=== PATIENT | male | born 1995 | race Two or more races ===

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

== ENCOUNTER 2017-01-03 13:50 | Emergency (ER) | payer OTHER ==
[2017-01-03 13:55] VITALS: BP 115/64; PULSE 92; RESP 18; TEMP 100.8; O2SAT 93
[2017-01-03] MEDS ORDERED: IBUPROFEN 600 MG TAB PO ONE ×2 (13:58→14:00)
--- NOTE | 2017-01-03 14:32 | EDPHY ---
H & P Time Seen by Provider: 01/03/17 14:21 HPI/ROS: CHIEF COMPLAINT: Fever, cough HISTORY OF PRESENT ILLNESS: 21-year-old male presents with fever and cough. Onset of runny nose, sore throat and cough 3 days ago. The cough is dry and frequent. No associated shortness of breath. Onset of fever today. Tolerating oral fluids well. No vomiting or diarrhea. He did not receive a flu vaccination this year. REVIEW OF SYSTEMS: Eyes: No visual changes Respiratory: no shortness of breath Cardiac: No chest pain Gastrointestinal: No nausea, no vomiting, no abdominal pain Genitourinary: no dysuria Musculoskeletal: No myalgias Skin: No rash Neurological: No headache, no weakness Psychiatric: No depression Past Medical/Surgical History: Denies Social History: Student at [employer] Smoking Status: Never smoked Physical Exam: General Appearance: Alert, pleasant Eyes: Pupils equal and round, no conjunctival injection ENT, Mouth: Mucous membranes moist, pharyngeal erythema Neck: Normal inspection, shotty anterior adenopathy Respiratory: Lungs are clear to auscultation Cardiovascular: Regular rate and rhythm Neurological: A&O, nonfocal, normal gait Skin: Warm and dry, no rash Extremities: normal inspection Psychiatric: Mood and affect normal Constitutional: Initial Vital Signs Temperature (C) 38.2 C 01/03/17 13:52 Heart Rate 92 01/03/17 13:52 Respiratory Rate 18 01/03/17 13:52 Blood Pressure 115/64 01/03/17 13:52 O2 Sat (%) 93 01/03/17 13:52 O2 Delivery Mode Room Air Allergies/Adverse Reactions: No Known Allergies Allergy (Verified 01/03/17 13:52) Home Medications: Medication Instructions Recorded NK [No Known Home Meds] 08/18/16 Medical Decision Making ED Course/Re-evaluation: This patient presents with a viral upper respiratory infection. No evidence of pneumonia. Symptomatic care discussed. Differential Diagnosis: Differential diagnosis includes but is not limited to pneumonia, otitis media, peritonsillar abscess, retropharyngeal abscess, meningitis. - Data Points Laboratory Results: 01/03/17 01/03/17 Unknown 13:56 Group A Strep Screen NEGATIVE (NEGATIVE) Group A Strep DNA Pending Medications Given: Discontinued Medications Ibuprofen (Motrin) 600 mg PO EDNOW ONE Stop: 01/03/17 14:01 Last Admin: 01/03/17 14:00 Dose: 600 mg Departure - Departure Disposition: Home, Routine, Self-Care Clinical Impression: Upper respiratory infection Qualifiers: URI type: unspecified viral URI Qualified Code(s): J06.9 - Acute upper respiratory infection, unspecified Condition: Good Instructions: Upper Respiratory Infection (ED) Additional Instructions: Ibuprofen 600 mg 3-4 times daily while the fever persists. Alternate with Tylenol every 3 hours. Drink plenty of fluids. Return for worsening symptoms or any concerns. Referrals: [facility],. [Clinic] - 3-4 days, if not improved
== END 2017-01-03 14:38 | disposition home or self-care (01) ==
DX: J06.9 Acute upper respiratory infection, unspecified (principal)

== ENCOUNTER 2017-05-03 17:14 | Emergency (ER) | payer OTHER ==
[2017-05-03 17:20] VITALS: RESP 16; TEMP 98.1
--- NOTE | 2017-05-03 18:16 | EDPHY ---
H & P Stated Complaint: Stomach ache (LUQ) this morning,better now;needs note for school Time Seen by Provider: 05/03/17 18:10 HPI/ROS: CHIEF COMPLAINT: Abdominal pain now resolved HISTORY OF PRESENT ILLNESS: The patient is a 21-year-old man who comes to the emergency department requesting a note for school. He states that he missed the lab the today because he had epigastric abdominal pain. It is now resolved. He did not vomit. No diarrhea. No fever. He is requesting a note for school. He declines workup. REVIEW OF SYSTEMS: Constitutional: denies: chills, fever, recent illness, recent injury EENTM: denies: blurred vision, double vision, nose congestion Respiratory: denies: cough, shortness of breath Cardiac: denies: chest pain, irregular heart rate, lightheadedness, palpitations Gastrointestinal/Abdominal: denies: See HPI diarrhea, vomiting, blood streaked stools Genitourinary: denies: dysuria, frequency, hematuria, pain Musculoskeletal: denies: joint pain, muscle pain Skin: denies: lesions, rash, jaundice, bruising Neurological: denies: headache, numbness, paresthesia, tingling, dizziness, weakness Hematologic/Lymphatic: denies: blood clots, easy bleeding, easy bruising Immunologic/allergic: denies: HIV/AIDS, transplant EXAM: GENERAL: Well-appearing, well-nourished and in no acute distress. HEAD: Atraumatic, normocephalic. EYES: Pupils equal round and reactive to light, extraocular movements intact, sclera anicteric, conjunctiva are normal. ENT: TMs normal, nares patent, oropharynx clear without exudates. Moist mucous membranes. NECK: Normal range of motion, supple without lymphadenopathy or JVD. LUNGS: Breath sounds clear to auscultation bilaterally and equal. No wheezes rales or rhonchi. HEART: Regular rate and rhythm without murmurs, rubs or gallops. ABDOMEN: Soft, nontender, normoactive bowel sounds. No guarding, no rebound. No masses appreciated. BACK: No CVA tenderness, no spinal tenderness, step-offs or deformities EXTREMITIES: Normal range of motion, no pitting or edema. No clubbing or cyanosis. NEUROLOGICAL: Cranial nerves II through XII grossly intact. Normal speech, normal gait. 5/5 strength, normal movement in all extremities, normal sensation PSYCH: Normal mood, normal affect. SKIN: Warm, dry, normal turgor, no visible rashes or lesions. Source: Patient Exam Limitations: No limitations - Personal History Current Tetanus Diphtheria and Acellular Pertussis (TDAP): Unsure - Medical/Surgical History Hx Asthma: No Hx Chronic Respiratory Disease: No Hx Diabetes: No Hx Cardiac Disease: No Hx Renal Disease: No Hx Cirrhosis: No Hx Alcoholism: No Hx HIV/AIDS: No Hx Splenectomy or Spleen Trauma: No Other PMH: PSHx: none. PMHx: denies - Family History Significant Family History: No pertinent family hx - Social History Smoking Status: Never smoked Alcohol Use: Sober Drug Use: None Constitutional: Initial Vital Signs Temperature (C) 36.7 C 05/03/17 17:17 Heart Rate 68 05/03/17 17:17 Respiratory Rate 16 05/03/17 17:17 Blood Pressure 119/77 05/03/17 17:17 O2 Sat (%) 97 05/03/17 17:17 O2 Delivery Mode Room Air Allergies/Adverse Reactions: No Known Allergies Allergy (Verified 05/03/17 17:16) Home Medications: Medication Instructions Recorded NK [No Known Home Meds] 08/18/16 Medical Decision Making ED Course/Re-evaluation: The patient does not wish to have any testing done. He simply wants a note for school. He declines further workup or testing. His abdominal exam is nontender. Will discharge him at this time. Differential Diagnosis: Partial list of the Differential diagnosis considered include but were not limited to; gastritis, peptic ulcer disease and although unlikely based on the history and physical exam, I also considered appendicitis, biliary disease, kidney stone, urinary tract infection. I discussed these differential diagnoses and the plan with the patient as well as the usual and expected course. The patient understands that the diagnosis is provisional and that in medicine we are not always correct and that further workup is often warranted. Usual and customary warnings were given. All of the patient's questions were answered. The patient was instructed to return to the emergency department should the symptoms at all worsen or return, otherwise to followup with the physician as we discussed. Departure - Departure Disposition: Home, Routine, Self-Care Clinical Impression: Abdominal pain Qualifiers: Abdominal location: left upper quadrant Qualified Code(s): R10.12 - Left upper quadrant pain Condition: Fair Instructions: Acute Abdominal Pain (ED) Referrals: NONE *PRIMARY CARE P,. [Primary Care Provider] - As per Instructions Stand Alone Forms: School Excuse
[2017-05-03 18:28] VITALS: BP 123/75; PULSE 84; O2SAT 96
== END 2017-05-03 18:41 | disposition home or self-care (01) ==
DX: R10.12 Left upper quadrant pain (principal)

== ENCOUNTER 2017-06-21 20:47 | Emergency (ER) | payer OTHER ==
[2017-06-21 21:22] VITALS: BP 124/76
--- NOTE | 2017-06-21 22:10 | EDPHY ---
H & P Stated Complaint: c/o abd pain since last pm, no n/v/d Time Seen by Provider: 06/21/17 22:10 HPI/ROS: HPI CHIEF COMPLAINT: Need School Note. HISTORY OF PRESENT ILLNESS: Patient is 21-year-old male, [employer] student, presents emergency room stating that he needs a school note. Patient states his stomach was upset earlier today it is now resolved he denies any abdominal pain. He states he missed his entire day of classes and like a school note. He explains to me that he does not have any abdominal pain he does not want any medical workup for the abdominal pain that he had earlier today. He complained of a dull ache around his periumbilical region. I did discuss with the patient that this could be an early appendicitis or a pain-free window for appendicitis. I did recommend he has workup here in the emergency room however he has declined. He wants school known wants to be discharged. I did explain to him if he has worsening abdominal pain today or overnight fever vomiting or does not feel well he needs to return emergency room for further evaluation Past Medical History: Denies Past Surgical History: Denies Social History: [employer] student. Family History: Denies ROS REVIEW OF SYSTEMS: A comprehensive 10 point review of systems is otherwise negative aside from elements mentioned in the history of present illness. Exam Constitutional triage nursing summary reviewed, vital signs reviewed, awake/ alert. Eyes normal conjunctivae and sclera, EOMI, PERRLA. HENT normal inspection, atraumatic, moist mucus membranes, no epistaxis, neck supple/ no meningismus, no raccoon eyes. Respiratory clear to auscultation bilaterally, normal breath sounds, no respiratory distress, no wheezing. Cardiovascular rate normal, regular rhythm, no murmur, no edema, distal pulses normal. Gastrointestinal no tenderness on exam. soft, non-tender, no rebound, no guarding, normal bowel sounds, no distension, no pulsatile mass. Genitourinary no CVA tenderness. Musculoskeletal no midline vertebral tenderness, full range of motion, no calf swelling, no tenderness of extremities, no meningismus, good pulses, neurovascularly intact. Skin pink, warm, & dry, no rash, skin atraumatic. Neurologic awake, alert and oriented x 3, AAOx3, moves all 4 extremities equally, motor intact, sensory intact, CN II-XII intact, normal cerebellar, normal vision, normal speech. Psychiatric normal mood/affect. Heme/Lymph/Immune no lymphadenopathy. Differential diagnosis includes but is not limited to and in no particular order : Early appendicitis, acute appendicitis, Bowel obstruction, appendicitis, gallbladder disease, diverticulitis, colitis, enteritis, perforated viscus, gastritis, GERD, esophagitis, urinary tract infection, pyelonephritis, kidney stones Medical Decision Making: Patient declining any further medical evaluation or workup here in emergency room. Return precautions discussed with him. Will give him a school note. He understands return emergency room if develops worsening abdominal pain fever vomiting. Source: Patient - Medical/Surgical History Hx Asthma: No Hx Chronic Respiratory Disease: No Hx Diabetes: No Hx Cardiac Disease: No Hx Renal Disease: No Hx Cirrhosis: No Hx Alcoholism: No Hx HIV/AIDS: No Hx Splenectomy or Spleen Trauma: No Other PMH: PSHx: none. PMHx: denies - Social History Smoking Status: Never smoked Constitutional: Initial Vital Signs Temperature (C) 36.8 C 06/21/17 21:20 Heart Rate 76 06/21/17 21:20 Respiratory Rate 16 06/21/17 21:20 Blood Pressure 124/76 H 06/21/17 21:20 O2 Sat (%) 96 06/21/17 21:20 O2 Delivery Mode Room Air Allergies/Adverse Reactions: No Known Allergies Allergy (Verified 06/21/17 21:22) Home Medications: Medication Instructions Recorded NK [No Known Home Meds] 08/18/16 Departure - Departure Disposition: Home, Routine, Self-Care Clinical Impression: Abdominal pain Qualifiers: Abdominal location: generalized Qualified Code(s): R10.84 - Generalized abdominal pain Condition: Good Instructions: Acute Abdominal Pain (ED) Additional Instructions: 1. Return emergency room immediately if he develops worsening abdominal pain fever vomiting or not feeling well. Referrals: NONE *PRIMARY CARE P,. [Primary Care Provider] - As per Instructions Stand Alone Forms: School Excuse
== END 2017-06-21 22:26 | disposition home or self-care (01) ==
DX: R10.84 Generalized abdominal pain (principal)

== ENCOUNTER 2017-08-23 16:15 | Emergency (ER) | payer OTHER ==
[2017-08-23] MEDS ORDERED: NS 1,000 ML IV ONE (16:50)
[2017-08-23] MEDS ORDERED: MAG HYDROX/AL HYDROX/SIMETH 30 ML UDCUP PO ONE (16:50)
[2017-08-23] MEDS ORDERED: PANTOPRAZOLE SODIUM 40 MG VIAL IVP ONE (16:50)
[2017-08-23] MEDS ORDERED: HYOSCYAMINE SULFATE 0.125 MG TAB PO ONE (16:50)
[2017-08-23] MEDS ORDERED: LIDOCAINE 2% VISCOUS 15 ML UDCUP PO ONE (16:50)
--- NOTE | 2017-08-23 16:50 | EDPHY ---
General - History Smoking Status: Never smoked Time Seen by Provider: 08/23/17 16:40 Narrative: CHIEF COMPLAINT: "Abdominal discomfort" HISTORY OF PRESENT ILLNESS: Patient presents with complaints of epigastric "abdominal discomfort." He states he drank a large amount of tea last night before going to bed. He woke at 2:00 a.m. With some discomfort in the epigastrium. It was mild to moderate. Some nausea but no vomiting. No fever chills. No diarrhea, constipation, bloody stools. He says that he was able to go to sleep eventually, and slept until 3:00 p.m.. He now states that he has no appetite but is discomfort is last. He is not nauseated but does not want to eat or drink anything. He is concerned that he is having an allergic reaction to the black tea that he drank no other associated complaints or modifying factors. No abdominal pathology or surgeries per REVIEW OF SYSTEMS: Ten systems reviewed and are negative unless otherwise noted in the HPI PCP: None SPECIALISTS: None PAST MEDICAL HISTORY: None PAST SURGICAL HISTORY: None SOCIAL HISTORY: Never smoker. No drug or alcohol use. Originally from [place]. [employer] FAMILY HISTORY: Noncontributory EXAMINATION General Appearance: Alert, no distress Head: normocephalic, atraumatic Eyes: Pupils equal and round, no conjunctival pallor or injection ENT, Mouth: Mucous membranes moist Neck: Normal inspection, supple, non-tender Respiratory: Lungs are clear to auscultation Cardiovascular: Regular rate and rhythm Gastrointestinal: Abdomen is soft and nontender. No tympany rigidity. No guarding. No palpable masses. No CVA tenderness. Benign abdominal examination Back: non-tender, no bony abnormalities Neurological: A&O, nonfocal, normal gait Skin: Warm and dry, no rash Extremities: Nontender, no pedal edema Psychiatric: Mood and affect normal DIFFERENTIAL DIAGNOSES: Including but not limited to gastritis, pancreatitis, peptic ulcer, cholecystitis, cholelithiasis, enteritis, gastroenteritis, colitis MDM: 4:50 p.m. Epigastric discomfort that is suspected peptic ulcer versus gastritis. His abdominal exam is benign. His vitals are within normal limits. I have ordered laboratory studies but I do not feel he warrants emergent imaging at this time. I have ordered IV fluid, Protonix and a GI cocktail. 6:00 p.m. Laboratory studies are unremarkable for any acute findings. Patient has received IV fluid, IV Protonix and a GI cocktail. I re-evaluated him at this time and he is feeling significantly better. He feels no discomfort. He has had water with no difficulty. We discussed discharge home with likely gastritis has a diagnosis. We discussed avoiding inflammatory agents. We discussed Pepcid and Carafate at home. We discussed ED precautions, primary care follow-up and possible GI referral. He is comfortable this plan and discharged home stable condition. SUPERVISION: This patient was independently evaluated without direct involvement of or examination by the attending physician. (Jose Ramon Donohue) - Objective Vital Signs: Initial Vital Signs Temperature (C) 97.9 F 08/23/17 16:21 Heart Rate 80 08/23/17 16:21 Respiratory Rate 17 08/23/17 16:21 Blood Pressure 110/75 08/23/17 16:21 O2 Sat (%) 95 08/23/17 16:21 O2 Delivery Mode Room Air Allergies/Adverse Reactions: No Known Allergies Allergy (Verified 08/23/17 16:21) Home Medications: Medication Instructions Recorded Famotidine [Pepcid 20 MG (*)] 20 mg PO BID #20 tab 08/23/17 Sucralfate [Carafate Oral Liquid 10 ml PO QID PRN #240 udsyr 08/23/17 100 mg/ml] Laboratory Results: Laboratory Results 08/23/17 17:15 08/23/17 17:15 08/23/17 08/23/17 17:15 17:15 WBC 4.16 10^3/uL 10^3/uL (3.80-9.50) RBC 6.39 10^6/uL H 10^6/uL (4.40-6.38) Hgb 16.5 g/dL g/dL (13.7-17.5) Hct 50.7 % % (40.0-51.0) MCV 79.3 fL L fL (81.5-99.8) MCH 25.8 pg L pg (27.9-34.1) MCHC 32.5 g/dL g/dL (32.4-36.7) RDW 14.8 % % (11.5-15.2) Plt Count 164 10^3/uL 10^3/uL (150-400) MPV 10.8 fL fL (8.7-11.7) Neut % (Auto) 43.5 % % (39.3-74.2) Lymph % (Auto) 45.9 % H % (15.0-45.0) [place] % (Auto) 7.5 % % (4.5-13.0) Eos % (Auto) 2.2 % % (0.6-7.6) Baso % (Auto) 0.7 % % (0.3-1.7) Nucleat RBC Rel Count 0.0 % % (0.0-0.2) Absolute Neuts (auto) 1.81 10^3/uL 10^3/uL (1.70-6.50) Absolute Lymphs (auto) 1.91 10^3/uL 10^3/uL (1.00-3.00) Absolute Monos (auto) 0.31 10^3/uL 10^3/uL (0.30-0.80) Absolute Eos (auto) 0.09 10^3/uL 10^3/uL (0.03-0.40) Absolute Basos (auto) 0.03 10^3/uL 10^3/uL (0.02-0.10) Absolute Nucleated RBC 0.00 10^3/uL 10^3/uL (0-0.01) Immature Gran % 0.2 % % (0.0-1.1) Immature Gran # 0.01 10^3/uL 10^3/uL (0.00-0.10) Sodium 142 mEq/L mEq/L (135-145) Potassium 4.3 mEq/L mEq/L (3.3-5.0) Chloride 106 mEq/L mEq/L (97-110) Carbon Dioxide 24 mEq/l mEq/l (22-31) Anion Gap 12 mEq/L mEq/L (8-16) BUN 16 mg/dL mg/dL (7-23) Creatinine 0.8 mg/dL mg/dL (0.7-1.3) Estimated GFR > 60 Glucose 117 mg/dL H mg/dL (70-100) Calcium 9.6 mg/dL mg/dL (8.5-10.4) Total Bilirubin 1.0 mg/dL mg/dL (0.1-1.4) Conjugated Bilirubin 0.4 mg/dL mg/dL (0.0-0.5) Unconjugated Bilirubin 0.6 mg/dL mg/dL (0.0-1.1) AST 15 IU/L L IU/L (17-59) ALT 31 IU/L IU/L (21-72) Alkaline Phosphatase 64 IU/L IU/L (38-126) Total Protein 7.3 g/dL g/dL (6.3-8.2) Albumin 4.3 g/dL g/dL (3.5-5.0) Lipase 51 IU/L IU/L (23-300) Medications Given: Discontinued Medications Al Hydroxide/Mg Hydroxide (Maalox Susp) 30 ml PO ONCE ONE Stop: 08/23/17 16:51 Last Admin: 08/23/17 17:12 Dose: 30 ml Hyoscyamine Sulfate (Levsin, Hyomax-Sl) 0.25 mg PO ONCE ONE Stop: 08/23/17 16:51 Last Admin: 08/23/17 17:13 Dose: 0.25 mg Sodium Chloride (Ns) 1,000 mls @ 0 mls/hr IV EDNOW ONE; Wide Open PRN Reason: Protocol Stop: 08/23/17 16:51 Last Admin: 08/23/17 17:13 Dose: 1,000 mls Lidocaine (Lidocaine 2% Viscous) 15 ml PO ONCE ONE Stop: 08/23/17 16:51 Last Admin: 08/23/17 17:12 Dose: 15 ml Pantoprazole Sodium (Protonix) 40 mg IVP EDNOW ONE Stop: 08/23/17 16:51 Last Admin: 08/23/17 17:12 Dose: 40 mg Departure - Departure Disposition: Home, Routine, Self-Care Clinical Impression: Gastritis Qualifiers: Gastritis type: unspecified gastritis Chronicity: acute Gastritis bleeding: without bleeding Qualified Code(s): K29.00 - Acute gastritis without bleeding Condition: Good Instructions: Gastritis (ED) Additional Instructions: 1. Contact the on-call physicians as provided for outpatient care 2. Carafate as prescribed as needed. Do not combine with any food or medications within 1 hr 3. Pepcid as prescribed twice daily for 10-14 days Number for ED precautions as discussed Referrals: Emilia Dubon MD [Medical Doctor] - As per Instructions Jaden Frazier MD [Medical Doctor] - As per Instructions Stand Alone Forms: School Excuse Prescriptions: Famotidine [Pepcid 20 MG (*)] 20 mg PO BID #20 tab Sucralfate [Carafate Oral Liquid 100 mg/ml] 10 ml PO QID PRN #240 udsyr PRN Reason: abdominal discomfort
[2017-08-23 17:31] LABS: PLATELET COUNT 164 10^3/uL (150-400)
[2017-08-23 18:37] VITALS: BP 112/102
== END 2017-08-23 18:37 | disposition home or self-care (01) ==
DX: K29.00 Acute gastritis without bleeding (principal); E86.9 Volume depletion, unspecified
CPT/HCPCS: 96374

== ENCOUNTER 2017-09-01 14:41 | Emergency (ER) | payer OTHER ==
[2017-09-01 15:06] VITALS: BP 108/73
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
== END 2017-09-01 15:58 | disposition home or self-care (01) ==
DX: S50.811A Abrasion of right forearm, initial encounter (principal); V28.0XXA Motorcycle driver injured in noncollision transport accident in nontraffic accident, initial encounter; Y92.410 Unspecified street and highway as the place of occurrence of the external cause; Y99.8 Other external cause status; Y93.89 Activity, other specified

== ENCOUNTER 2017-11-02 20:20 | Emergency (ER) | payer OTHER ==
[2017-11-02] MEDS ORDERED: KETOROLAC 15 MG/1 ML SDV IVP ONE (20:25)
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
[2017-11-02 22:19] VITALS: BP 120/75
== END 2017-11-02 22:10 | disposition home or self-care (01) ==
LOC: EDUNIT#
DX: S46.211A Strain of muscle, fascia and tendon of other parts of biceps, right arm, initial encounter (principal); R40.2412 Glasgow coma scale score 13-15, at arrival to emergency department; V23.4XXA Motorcycle driver injured in collision with car, pick-up truck or van in traffic accident, initial encounter; Y92.410 Unspecified street and highway as the place of occurrence of the external cause; Y99.8 Other external cause status
CPT/HCPCS: 96374; A4565; J1885